=== PATIENT | male | born 1950 | race Hispanic/Latino ===

== ENCOUNTER 2018-06-08 10:39 | Day surgery (SDC) | payer BC ==
[2018-05-18 11:27] VITALS: BMI 32.6
[2018-06-08] MEDS ORDERED: ceFAZolin 1 gm in NS 1 GM/100 ML BAG IVPB ONE (13:41)
[2018-06-08] MEDS ORDERED: Midazolam 2 MG/2 ML VIAL ONE (13:44)
[2018-06-08] MEDS ORDERED: Propofol 10 mg/ml Inj (20 ML) ONE (13:45)
[2018-06-08] MEDS: Bupivacaine HCl 0.5% PF (10 ml) Inj ONE ×2 (14:02→14:30)
[2018-06-08] MEDS: Lidocaine Hydrochloride 10 ML INJ ONE ×2 (14:03→14:30)
[2018-06-08] MEDS ORDERED: HYDROmorphone 0.5 mg/0.5 ml ISec IVP PRN (14:19)
[2018-06-08] MEDS: Bacitracin 500 Units/gm Oint Foilpak UD ONE ×2 (14:29→14:31)
--- NOTE | 2018-06-08 14:38 | PCM.SURG1 ---
Surgeon's Initial Post Op Note - Surgeon's Notes Surgeon: Juaquin Cycle Consultant: KATIE Type of Anesthesia: General LMA Anesthesia Administered By: STAFF Pre-Operative Diagnosis: PHIMOSIS Operative Findings: SAME Post-Operative Diagnosis: SAME Operation Performed: CIRCUMCISION Specimen/Specimens Removed: FORESKIN Estimated Blood Loss: EBL {In ML}: 0 Blood Products Given: N/A Drains Used: No Drains Post-Op Condition: Good Date of Surgery/Procedure: 06/08/18 Time of Surgery/Procedure: 14:38
[2018-06-08 15:18] VITALS: TEMP 98
[2018-06-08 15:58] VITALS: BP 138/71; PULSE 72; RESP 18; O2SAT 100
--- NOTE | 2018-06-09 02:37 | OP ---
PROCEDURE DATE: 06/08/2018 PREOPERATIVE DIAGNOSIS: Severe phimosis. POSTOPERATIVE DIAGNOSIS: Severe phimosis. PROCEDURE: Circumcision. DESCRIPTION OF PROCEDURE: The procedure is as follows. Prior to the procedure, a detailed informed consent was obtained from the patient. All risks and complications were reviewed with the patient. The patient accepts these risks, signed the consent, was brought into the room. A time-out was taken according to the rules and regulations of [facility]. The patient was draped and prepped in the usual manner. The foreskin could not be retracted, so a dorsal slit was made and the foreskin was retracted. The interior of the foreskin was prepped, and then the foreskin was pulled distally. A marking pen was used to hailey the area of the sulcus coronarius at the exterior of the foreskin, and the foreskin was pulled back, and an incision was made in the skin of the interior of the foreskin approximately 1 cm proximal to the sulcus coronarius. This was carried out circumferentially. Care was taken to reconstitute the frenulum. The foreskin was then retracted, and another circumferential incision was made over the marked area, and the patient had the two incisions connected, blunt and sharp dissection, using the Bovie cautery and knife. Once this foreskin had been amputated, the area was checked. Meticulous hemostasis was achieved. A 3-0 chromic suture was used to connect the foreskin, and an U-stitch was used to reconstruct the frenulum, which also required at one stitch. The patient tolerated this procedure well. The patient was sent to the recovery room in good condition with a dry sterile fashion. Postoperative instructions were given. Nathan Reza MD
== END 2018-06-08 16:51 | disposition home or self-care (01) ==
LOC: C.SDS 10:39
PROVIDERS: ATTEND Urology
DX: N47.1 Phimosis (principal)
CPT/HCPCS: 54161; 88304; J0690; J2250; J2704; J3010